=== PATIENT | female | born 2000 | race African-American/Black ===

== ENCOUNTER → 2021-06-10 | Emergency (ER) | payer BC ==
[~2021-06-10] VITALS: Ht 167.6 cm; Wt 77.1 kg
[~2021-06-10] MED LIST: ACETAMINOPHEN-1 EAC1 PO; BACTRIM 400-801 EACH PO; BACTROBAN CREAM30 G1 NS; CLEOCIN HCL300 MG PO; DOXYCYCLINE 10100 M2 PO; KEFLEX500 MG PO; VICODIN 5-5001 EACH PO; ZOFRAN ODT4 MG PO
[2021-06-10 16:34] LABS: URINE BILIRUBIN NEGATIVE (Negative); URINE BLOOD NEGATIVE (Negative); URINE CLARITY CLEAR; URINE COLOR YELLOW; URINE GLUCOSE-RANDOM NEGATIVE (Negative); URINE KETONES NEGATIVE (Negative); URINE LEUKOCYTES NEGATIVE (Negative); URINE NITRITE NEGATIVE (Negative); URINE PROTEIN TRACE (Negative); URINE UROBILINOGEN 0.2 E.U./dl (0.2-1.0)
[2021-06-10 16:51] VITALS: BP 126/77
== END ==
LOC: M.ERS 16:12
PROVIDERS: Physician Assistant
DX: R19.7 Diarrhea, unspecified (principal); L02.32 Furuncle of buttock; Z79.899 Other long term (current) drug therapy